=== PATIENT | female | born 1995 | race Caucasian/White ===

== ENCOUNTER 2016-10-18 18:05 | Emergency (ER) | payer OTHER ==
[~2016-10-18] VITALS: Ht 165.1 cm; Wt 117.4 kg
[2016-10-18 18:09] VITALS: TEMP 36.9; Ht 165.1 cm; Wt 117.4 kg
[2016-10-18] MEDS ORDERED: MULT-580 PO (18:19)
[2016-10-18] MEDS ORDERED: IBUP-1050 PO (18:19)
[2016-10-18] MEDS ORDERED: TRAM-10 PO (19:21)
[2016-10-18] MEDS ORDERED: CYCL10TA6 PO (19:21)
[2016-10-18 19:28] VITALS: BP 145/83; PULSE 93; O2SAT 97
--- NOTE | 2016-10-19 00:55 | EMERGENCY ROOM VISIT NOTE ---
ED Visit Note First contact with patient: 18:20 Chief Complaint: Lower back pain. History of Present Illness: Ms. Nickerson is a 20-year-old white female who ambulates into the ED accompanied by female friend complaining of lumbar back pain. Patient reports she has no significant history of lumbar back disease. Patient reports she has been feeling well over the last few days. Last night she reports she bent over to pick something up and developed an acute onset of lumbar back pain. Since that time her pain has been constant. She describes her pain as a sharp sensation through the L4-L5 area with right sided prominence. She reports intermittently her pain radiates early to behind the scapula and also into the left buttocks. She currently rates her discomfort 8/ 10. Her pain worsens with all movements and palpation of the back. She has not identified any alleviating factors related to the pain. Patient reports she has not taken any medications for pain prior to arrival at the hospital. She denies any associated symptoms including fevers, chills, sweats, skin eruptions, skin color changes, chest pain, shortness of breath, abdominal pain, nausea, vomiting, diarrhea, constipation, urinary symptoms, genital paresthesias , rectal paresthesias, bowel and bladder dysfunction, lower extremity weakness/ numbness/tingling. Review of Systems: As noted above in history of present illness. All body systems were reviewed and found to be negative as noted above. Past Medical History: Patient denies. Current Medications: Ibuprofen, multivitamins. Allergies to Medications: Patient denies. Social History: Patient is is currently employed; she feels safe in her home environment; she admits to tobacco use and denies alcohol use. Physical Examination: Vital Signs: Date Time Temp Pulse Resp B/P Pulse Ox O2 Delivery O2 Flow Rate FiO2 10/18/16 19:28 93 20 145/83 97 10/18/16 18:09 36.9 107 18 123/76 98 Room Air GENERAL: 20-year-old female in mild to moderate distress due to pain, nontoxic- appearing, afebrile and hemodynamically stable. NEUROLOGICAL: Awake, alert and oriented to person, place and time. Answering questions appropriately and following commands. Normal gait. Good hand eye coordination. No focal motor or sensory deficits. SKIN: Warm, dry and pink. No soft tissue eruptions or trauma noted. HEENT: Atraumatic and normocephalic. BACK: No tenderness over the bony cervical and thoracic spine. No CVA tenderness. Over the L1-L2 and L3-L5 just right lateral to the spine. Patient has pain and muscle spasm in the lumbar paraspinous which are. I do not appreciate any bony tenderness or deformities. There is no step-offs. Positive straight leg raise test. THORAX: Lungs sounds are clear to auscultation and equal bilaterally with symmetrical chest wall. No wheezing, rales or rhonchi. HEART: Regular rate and rhythm. No gallops, rubs or murmurs are appreciated. ABDOMEN: Obese, soft and nontender. Positive bowel sounds in all quadrants. No guarding, rigidity or organomegaly. LOWER EXTREMITIES: No gross bony deformity. No shortening or malrotation. No tenderness over the hips, knees, lower legs, ankles or feet. 4/5 muscle strength in abduction and abduction, flexion and extension of the hips, flexion and extension of the, plantar flexion and dorsiflexion of the ankles and flexion and extension of all toes. 2+ patellar and Achilles deep tendon reflexes intact and equal bilaterally. Throughout the extremity is skin was warm and pink and capillary refill is brisk. She is able to distinguish light sensations through all dermatomes of the lower legs. ED Course: Patient is assessed as noted above. Patient was educated about tonight's findings and instructed on her treatment plan; she verbalizes understanding and agreement with this plan. Clinical Impression: Right sided sciatica. Disposition: Patient discharged home in stable condition accompanied by multiple family members; prior to departure she was reassessed and subjectively reported she was feeling the same. Plan: Patient was encouraged to alter 50 mg of Ultram and 600 mg of ibuprofen every 3 hours as needed for pain. Patient was prescribed Flexeril 10 mg every 8 hours as needed for muscle spasm. Patient was encouraged use ice over areas of pain. Patient was educated on proper lifting and moving techniques. Patient was encouraged to follow-up with family physician for recheck in 3-4 days. Patient was encouraged return the ED front controlled pain, fevers, abdominal pain, bowel and bladder dysfunction, genital paresthesias, lower extremity weakness/numbness/tingling or any new/concerning symptoms.
== END 2016-10-18 19:28 | disposition home or self-care (01) ==
LOC: C.EDB 18:07 → C.EDD 19:28
DX: M54.41 Lumbago with sciatica, right side (principal); F17.200 Nicotine dependence, unspecified, uncomplicated

== ENCOUNTER 2016-11-30 14:42 | Emergency (ER) | payer OTHER ==
[~2016-11-30] VITALS: Ht 165.1 cm; Wt 115.5 kg
[~2016-11-30 14:42] MED LIST: IBUP-1050 PO; MULT-580 PO; TRAM-10 PO
[2016-11-30 14:49] VITALS: TEMP 37; Ht 165.1 cm; Wt 115.5 kg
[2016-11-30] MEDS ORDERED: ACETAMINOPHEN 500 MG TAB PO STA (15:23)
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
[2016-11-30 17:23] VITALS: BP 154/75; PULSE 95; O2SAT 96
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
== END 2016-11-30 17:25 | disposition home or self-care (01) ==
LOC: C.EDB 14:46 → C.EDD 17:25
DX: S00.83XA Contusion of other part of head, initial encounter (principal); M25.531 Pain in right wrist; Y04.0XXA Assault by unarmed brawl or fight, initial encounter

== ENCOUNTER 2017-03-03 00:45 | Emergency (ER) | payer OTHER ==
[~2017-03-03] VITALS: Ht 165.1 cm; Wt 113.9 kg
[2017-03-03 00:48] VITALS: Ht 165.1 cm; Wt 113.9 kg
[2017-03-03] MEDS ORDERED: PRED20TA2 PO (01:11)
[2017-03-03 01:20] VITALS: BP 130/73; PULSE 75; TEMP 36.7; O2SAT 100
--- NOTE | 2017-03-03 06:56 | EMERGENCY ROOM VISIT NOTE ---
ED Visit Note First contact with patient: 00:53 CHIEF COMPLAINT: Rash HISTORY OF PRESENT ILLNESS: This 21-year-old female patient presents to the emergency department complaining of a rash on her back and abdomen which started about 2 weeks ago. The patient denies fever, chills, nausea, or loss of appetite. They deny any URI symptoms. The patient has tried nothing over-the -counter. The patient states the rash is pruritic and rates the discomfort as 5 /10. No change in food, soap, detergents, or other environmental factors. No new medications. No weakness or numbness. REVIEW OF SYSTEMS: A 6 system review of systems was completed with positives and pertinent negatives listed in the HPI. ALLERGIES: No known allergies. 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 GENERAL : White female, in no acute distress, well-developed, well-nourished. SKIN: There is an urticarial-like rash best appreciated over the back and abdomen. Capillary refill less than 2 seconds. EMERGENCY DEPARTMENT COURSE: Physical exam and history were performed. Nursing notes and EMR were reviewed. The patient has a rash on her body for about the past 2 weeks. She does not have changes in soaps or detergents. 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 This is certainly a possibility as the rash appears to be worse on her upper chest and back. I will provide the patient Benadryl here in the department as well as a dose of prednisone. She will be discharged home with short course of prednisone. I recommend that she wash her own scrubs and follow-up with her primary care physician if symptoms persist. She certainly does not appear in anaphylaxis and does not need epinephrine. The patient was otherwise invited back to the ER with any new , worsening, or concerning symptoms. Current/Historical Medications Scheduled Prednisone (Prednisone Tab), 2 TAB PO DAILY Allergies Coded Allergies: No Known Allergies (Verified , 03/03/17) Vital Signs Date Time Temp Pulse Resp B/P (MAP) Pulse Ox O2 Delivery O2 Flow Rate FiO2 03/03/17 01:20 36.7 75 16 130/73 100 03/03/17 00:48 36.7 75 16 130/73 100 Room Air Medications Administered Medications (Trade) Dose Ordered Sig/Asaf Route Start Time Stop Time Status Last Admin Dose Admin Diphenhydramine HCl (Benadryl Cap) 25 mg NOW ONCE PO 03/03/17 01:15 03/03/17 01:16 DC 03/03/17 01:17 25 MG Prednisone (PredniSONE TAB) 40 mg NOW STAT PO 03/03/17 01:10 03/03/17 01:11 DC 03/03/17 01:17 40 MG Departure Information Impression Primary Impression: Rash and other nonspecific skin eruption Dispostion Home / Self-Care Condition FAIR Prescriptions Prednisone (Prednisone Tab) 20 Mg Tab 2 TAB PO DAILY for 4 Days, #8 TAB Prov: Ameya Greenberg PA-C 03/03/17 Forms HOME CARE DOCUMENTATION FORM, IMPORTANT VISIT INFORMATION Patient Instructions [facility] Additional Instructions You were seen and evaluated today on an emergency basis only. This is not a substitute for, or an effort to provide, complete comprehensive medical care. It is not possible to recognize and treat all injuries or illnesses in a single emergency department visit. For this reason it is recommended that you followup with your primary care physician this week for ongoing care and evaluation. Use [id number] Benadryl 25-50 mg every 6 hours as needed. This medication will likely make you tired. Take prednisone as prescribed the next 4 days. You are welcome to return to the emergency department anytime with new, worsening, or concerning symptoms.
== END 2017-03-03 01:20 | disposition home or self-care (01) ==
LOC: C.EDB 00:46
DX: R21 Rash and other nonspecific skin eruption (principal)

== ENCOUNTER 2023-02-04 07:52 | Inpatient (IN) ==
[2023-02-04] MEDS ORDERED: OXYTOCIN 30 UNITS/500 ML BAG IV PRN (08:52)
[2023-02-04] MEDS ORDERED: LIDOCAINE 1% LOCAL 20 ML VIAL INFIL PRN (08:52)
[2023-02-04 09:23] LABS: Hematocrit (blood only) 34.6 % (37.0-47.0); Hemoglobin 11.9 g/dl (12.0-16.0); Mean Corpuscular Hemoglobin 27.2 pg (25.0-34.0); Mean Corpuscular Hgb Conc 34.4 g/dL (32.0-36.0); Mean Platelet Volume 10.7 fL (9.4-12.4); Platelet Count 208 K/uL (130-400); RDW Coefficient of Variation 14.8 % (11.5-14.5); RDW Standard Deviation 42.5 fL (36.4-46.3); Red Blood Count 4.38 M/uL (4.20-5.40); White Blood Count 7.12 K/ul (4.8-10.8)
[2023-02-04] MEDS ORDERED: DINOPROSTONE 10 MG INSERT PV ONE (10:45)
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
--- NOTE | 2023-02-04 11:32 | Labor Progress Brief Note ---
Date of Service February 04, 2023 Assessment & Plan Admission and Anticipated Discharge Date Admission Date: February 04, 2023 Physical Exam Genitourinary: Manual OB Exam: + cervical dilation fingertip, + cervical effacement 50% and + station high OB Exam Monitor Tracing: + external FHT monitor used, + external uterine monitor used, + category I and + normal FHT variability Cervidil 10 mg placed Results & Data Vital Signs (Past 12 Hours) Vital Signs Temp Pulse Resp BP 02/04/23 08:15 37.1 C 20 02/04/23 08:08 93 H 137/60
[2023-02-04] MEDS ORDERED: miSOPROStoL 50 MCG TAB PO PRN (22:42)
[2023-02-04] MEDS ORDERED: BUTORPHANOL TARTRATE 1 MG/ML VIAL IV PRN (22:42)
--- NOTE | 2023-02-04 22:52 | Labor Progress Brief Note ---
Date of Service February 04, 2023 Assessment & Plan Admission and Anticipated Discharge Date Admission Date: February 04, 2023 Physical Exam Genitourinary: Manual OB Exam: + cervical dilation 1 cm and 2 cm, + cervical effacement 80% and + station high OB Exam Monitor Tracing: + external FHT monitor used, + external uterine monitor used, + category I and + normal FHT variability Results & Data Vital Signs (Past 12 Hours) Vital Signs Temp Pulse Resp BP O2 Del Method 02/04/23 19:35 Room Air 02/04/23 22:20 36.6 C 02/04/23 19:35 20 02/04/23 19:35 36.8 C 20 02/04/23 19:35 84 02/04/23 19:35 118/58 L 02/04/23 17:56 83 02/04/23 17:56 118/77 02/04/23 11:31 81 02/04/23 11:31 36.8 C 20 130/61
[2023-02-05] MEDS: LACTATED RINGER'S 1,000 ML IV PRN ×2 (01:44→05:45)
[2023-02-05] MEDS ORDERED: LIDOCAINE 2%/EPINEPHRINE 1:200,000 20 ML PF ONE (01:48)
[2023-02-05] MEDS ORDERED: ePHEDrine sulfate 50 MG/ML AMP ONE (01:48)
[2023-02-05] MEDS ORDERED: fentaNYL citrate PF 100 MCG/2 ML VIAL ONE (01:48)
[2023-02-05] MEDS ORDERED: fentaNYL 2MCG/ML ROPIVACAINE 1.25MG/ML 100 ML BAG EPI ONE (01:48)
[2023-02-05] MEDS ORDERED: SODIUM CHLORIDE 0.9% PF INJ 10 ML VIAL ONE (01:48)
[2023-02-05] MEDS ORDERED: BUPIVACAINE 0.25% PF 30 ML VIAL ONE (01:48)
[2023-02-05] MEDS ORDERED: diphenhydrAMINE 50 MG/ML VIAL IV PRN (02:01)
[2023-02-05] MEDS ORDERED: SODIUM CHLORIDE 0.9% PF INJ 10 ML VIAL EPI STA (02:01)
[2023-02-05] MEDS ORDERED: ePHEDrine sulfate 50 MG/ML AMP IV PRN (02:01)
[2023-02-05] MEDS ORDERED: LIDOCAINE 2% MPF LOCAL 5 ML VIAL EPI PRN (02:01)
[2023-02-05] MEDS ORDERED: NALBUPHINE HCL INJ 10 MG/ML AMP IV PRN (02:01)
[2023-02-05] MEDS ORDERED: fentaNYL 2MCG/ML ROPIVACAINE 1.25MG/ML 100 ML BAG EPI PRN (02:01)
[2023-02-05] MEDS ORDERED: ROPIVACAINE 0.5% PF 5 MG/ML 20 ML VIAL EPI PRN (02:01)
[2023-02-05] MEDS ORDERED: NALOXONE HCL 0.4 MG/1 ML VIAL/CARP IV PRN (02:01)
[2023-02-05] MEDS ORDERED: fentaNYL citrate PF 100 MCG/2 ML VIAL EPI PRN (02:01)
[2023-02-05] MEDS ORDERED: NALOXONE HCL 1 MG in SODIUM CHLORIDE 0.9% 1000ML 1,000 ML IV PRN (02:01)
[2023-02-05] MEDS ORDERED: BUPIVACAINE 0.25% PF 30 ML VIAL EPI PRN (02:01)
[2023-02-05] MEDS ORDERED: SODIUM CHLORIDE 0.9% PF INJ 10 ML VIAL EPI PRN (02:01)
[2023-02-05] MEDS ORDERED: BUPIVACAINE 0.25% PF 30 ML VIAL EPI STA (02:01)
[2023-02-05] MEDS ORDERED: fentaNYL citrate PF 100 MCG/2 ML VIAL EPI STA (02:01)
[2023-02-05] MEDS ORDERED: LIDOCAINE 2%/EPINEPHRINE 1:200,000 20 ML PF EPI STA (02:01)
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
[2023-02-05] MEDS ORDERED: OXYTOCIN 30 UNITS/500 ML BAG IV PRN ×3 (07:24→11:09)
--- NOTE | 2023-02-05 07:31 | Labor Progress Brief Note ---
Date of Service February 05, 2023 Assessment & Plan Admission and Anticipated Discharge Date Admission Date: February 04, 2023 Physical Exam Genitourinary: Manual OB Exam: + cervical dilation 3 cm, + cervical effacement 70% and + station -2 OB Exam Monitor Tracing: + external FHT monitor used, + external uterine monitor used, + category I and + normal FHT variability will start Oxytocin Results & Data Vital Signs (Past 12 Hours) Vital Signs Temp Pulse Resp BP Pulse Ox O2 Del Method 02/04/23 19:35 Room Air 02/05/23 07:29 84 97 02/05/23 07:24 85 97 02/05/23 07:19 82 97 02/05/23 07:17 80 121/58 L 02/05/23 07:14 101 H 97 02/05/23 07:09 88 97 02/05/23 07:04 86 96 02/05/23 07:00 16 02/05/23 07:00 16 02/05/23 07:02 83 118/57 L 02/05/23 06:59 85 96 02/05/23 06:54 83 96 02/05/23 06:49 95 H 96 02/05/23 06:47 86 121/62 02/05/23 06:30 16 02/05/23 06:30 16 02/05/23 06:44 81 98 02/05/23 06:39 86 96 02/05/23 06:34 85 97 02/05/23 06:31 84 121/60 02/05/23 06:29 85 96 02/05/23 06:24 84 96 02/05/23 06:19 85 97 02/05/23 06:16 79 116/60 02/05/23 06:14 85 97 02/05/23 06:09 86 96 02/05/23 06:04 83 97 02/05/23 06:03 83 119/65 02/05/23 06:00 16 02/05/23 06:00 16 02/05/23 05:59 87 98 02/05/23 05:54 86 97 02/05/23 05:49 88 99 02/05/23 05:46 16 02/05/23 05:46 36.5 C 16 02/05/23 05:47 86 126/60 02/05/23 05:44 85 98 02/05/23 05:39 90 99 02/05/23 05:34 87 97 02/05/23 05:32 84 133/67 02/05/23 05:29 79 92 02/05/23 05:00 16 02/05/23 05:00 16 02/05/23 05:24 95 H 96 02/05/23 05:19 86 96 02/05/23 05:16 88 128/66 02/05/23 05:14 82 96 02/05/23 05:09 87 96 02/05/23 05:04 98 H 96 02/05/23 05:01 86 126/67 02/05/23 04:59 84 97 02/05/23 04:54 84 96 02/05/23 04:49 84 96 02/05/23 04:46 76 129/68 02/05/23 04:44 93 H 96 02/05/23 04:39 86 95 02/05/23 04:34 93 H 96 02/05/23 04:32 82 130/62 02/05/23 04:29 83 95 02/05/23 04:24 80 96 02/05/23 04:17 16 02/05/23 04:17 36.9 C 16 02/05/23 04:19 94 H 97 02/05/23 04:16 76 125/60 02/05/23 04:14 93 H 96 02/05/23 04:09 83 95 02/05/23 04:04 84 96 02/05/23 04:01 71 127/62 02/05/23 03:59 83 96 02/05/23 03:54 73 96 02/05/23 03:49 84 95 02/05/23 03:46 78 127/62 02/05/23 03:44 77 95 02/05/23 03:39 84 94 02/05/23 03:34 83 96 02/05/23 03:31 77 122/62 02/05/23 03:29 86 95 02/05/23 03:24 88 96 02/05/23 03:19 79 96 02/05/23 03:18 80 120/57 L 02/05/23 03:14 85 95 02/05/23 03:09 80 95 02/05/23 03:04 78 96 02/05/23 03:00 16 02/05/23 03:00 16 02/05/23 03:01 82 117/58 L 02/05/23 02:59 78 97 02/05/23 02:58 79 122/64 02/05/23 02:54 83 97 02/05/23 02:53 85 122/60 02/05/23 02:49 86 97 02/05/23 02:48 87 124/65 02/05/23 02:44 91 H 98 02/05/23 02:40 83 110/53 L 02/05/23 02:39 96 H 96 02/05/23 02:38 84 115/58 L 02/05/23 02:37 86 120/58 L 02/05/23 02:34 86 97 02/05/23 02:33 86 106/86 02/05/23 02:29 90 96 02/05/23 02:27 91 H 93 02/05/23 02:24 92 H 98 02/05/23 02:19 81 98 02/05/23 02:00 20 02/05/23 02:00 36.6 C 20 02/05/23 00:16 36.8 C 02/05/23 00:14 74 90 02/05/23 00:11 81 84 L 02/05/23 00:08 90 92 02/05/23 00:06 76 83 L 02/05/23 00:01 84 100 02/05/23 00:00 83 93 02/04/23 23:56 100 02/04/23 23:56 93 H 02/04/23 23:54 94 02/04/23 23:54 73 02/04/23 23:51 90 02/04/23 23:51 81 02/04/23 23:49 92 02/04/23 23:49 86 02/04/23 23:46 92 02/04/23 23:46 73 02/04/23 23:41 92 02/04/23 23:41 75 02/04/23 23:36 100 02/04/23 23:36 84 02/04/23 23:36 94 02/04/23 23:36 82 02/04/23 23:30 16 02/04/23 23:30 16 02/04/23 23:31 98 02/04/23 23:31 87 02/04/23 23:29 94 02/04/23 23:29 84 02/04/23 23:26 95 02/04/23 23:26 83 02/04/23 23:22 92 02/04/23 23:22 86 02/04/23 23:21 98 02/04/23 23:21 91 H 02/04/23 23:16 98 02/04/23 23:16 87 02/04/23 23:16 93 02/04/23 23:16 85 02/04/23 23:11 93 02/04/23 23:11 94 H 02/04/23 23:11 92 02/04/23 23:11 90 02/04/23 23:06 100 02/04/23 23:06 87 02/04/23 23:05 94 02/04/23 23:05 92 H 02/04/23 23:01 97 02/04/23 23:01 96 H 02/04/23 22:56 99 02/04/23 22:56 82 02/04/23 22:52 79 02/04/23 22:52 130/65 02/04/23 22:51 99 02/04/23 22:51 80 02/04/23 22:20 36.6 C 02/04/23 19:35 20 02/04/23 19:35 36.8 C 20 02/04/23 19:35 84 02/04/23 19:35 118/58 L
[2023-02-05] MEDS ORDERED: NURSING L&D Epidural Breakthrough Pain Update ONE (10:00)
[2023-02-05] MEDS ORDERED: IBUPROFEN 600 MG TAB PO PRN (11:09)
[2023-02-05] MEDS ORDERED: bisacodyL 10 MG SUPP PR PRN (11:09)
[2023-02-05] MEDS ORDERED: HYDROCORTISONE ACETATE 25 MG SUPP PR PRN (11:09)
[2023-02-05] MEDS ORDERED: ACETAMINOPHEN 325 MG TAB PO PRN (11:09)
[2023-02-05] MEDS ORDERED: BENZOCAINE 20% AER SPR 82.5 GM CAN EXT PRN (11:09)
[2023-02-05] MEDS ORDERED: DIPHTHERIA/TETANUS/PERTUSSIS Vaccine (Tdap, Age 7+yrs) 0.5mL SYR/VL IM ONE (11:09)
--- NOTE | 2023-02-05 11:09 | Delivery Summary ---
Vaginal Delivery Summary Date of Service February 05, 2023 Vaginal Delivery Summary Delivery Note live female ASHIA over intact perineum with delayed cord clamping and Apgars 8/9 weight pending. Cord blood obtained followed by spontaneous delivery of intact placenta. No tears. EBL 150 ml. Final sponge and instrument count are correct. Mom and baby stable.
--- NOTE | 2023-02-05 11:17 | Anesthesiology Progress Note ---
Date of Service February 05, 2023 Anesthesia Post Procedure Vital Signs Vital Signs: Temp Pulse Resp BP Pulse Ox O2 Del Method 02/05/23 07:33 36.7 C 20 02/04/23 19:35 Room Air 02/05/23 11:13 102 H 129/61 02/05/23 10:01 20 02/05/23 10:01 20 02/05/23 10:57 106 H 136/64 02/05/23 10:49 93 H 97 02/05/23 10:47 96 H 143/65 H 02/05/23 10:44 105 H 97 02/05/23 10:39 109 H 87 L 02/05/23 10:37 104 H 83 L 02/05/23 10:34 99 H 99 02/05/23 10:32 100 H 146/70 H 02/05/23 10:29 98 H 81 L 02/05/23 10:24 113 H 100 02/05/23 10:23 108 H 77 L 02/05/23 10:19 108 H 100 02/05/23 10:17 94 H 117/59 L 02/05/23 10:14 95 H 100 02/05/23 10:09 107 H 100 02/05/23 10:04 109 H 97 02/05/23 10:02 100 H 146/65 H 02/05/23 09:59 99 H 100 02/05/23 09:54 103 H 96 02/05/23 09:49 96 H 100 02/05/23 09:31 18 02/05/23 09:31 36.7 C 18 02/05/23 09:01 20 02/05/23 09:01 20 02/05/23 09:47 97 H 134/66 02/05/23 09:44 102 H 98 02/05/23 09:39 106 H 98 02/05/23 09:38 101 H 82 L 02/05/23 09:34 99 H 98 02/05/23 09:32 85 141/73 H 02/05/23 09:29 99 H 98 02/05/23 09:24 96 H 98 02/05/23 09:19 84 98 02/05/23 09:17 88 126/71 02/05/23 09:14 87 99 02/05/23 09:09 88 99 02/05/23 09:04 89 99 02/05/23 09:02 86 135/73 02/05/23 08:59 83 99 02/05/23 08:54 84 98 02/05/23 08:49 81 100 02/05/23 08:47 86 128/63 02/05/23 08:44 84 97 02/05/23 08:39 86 97 02/05/23 08:34 83 97 02/05/23 08:31 18 02/05/23 08:31 18 02/05/23 08:32 88 118/62 02/05/23 08:29 86 97 02/05/23 08:24 81 97 02/05/23 08:19 85 99 02/05/23 08:17 89 123/67 02/05/23 08:14 93 H 98 02/05/23 08:01 20 02/05/23 08:01 20 02/05/23 08:09 91 H 99 02/05/23 08:04 87 99 02/05/23 08:02 97 H 121/61 02/05/23 07:59 101 H 97 02/05/23 07:54 85 96 02/05/23 07:49 83 97 02/05/23 07:47 88 119/62 02/05/23 07:44 84 98 02/05/23 07:39 83 96 02/05/23 07:03 20 02/05/23 07:03 20 02/05/23 07:31 20 02/05/23 07:31 20 02/05/23 07:34 87 97 02/05/23 07:32 85 122/61 02/05/23 07:29 84 97 02/05/23 07:24 85 97 02/05/23 07:19 82 97 02/05/23 07:17 80 121/58 L 02/05/23 07:14 101 H 97 02/05/23 07:09 88 97 02/05/23 07:04 86 96 02/05/23 07:00 16 02/05/23 07:00 16 02/05/23 07:02 83 118/57 L 02/05/23 06:59 85 96 02/05/23 06:54 83 96 02/05/23 06:49 95 H 96 02/05/23 06:47 86 121/62 02/05/23 06:30 16 02/05/23 06:30 16 07/12/23 06:44 81 98 02/05/23 06:39 86 96 02/05/23 06:34 85 97 02/05/23 06:31 84 121/60 02/05/23 06:29 85 96 02/05/23 06:24 84 96 02/05/23 06:19 85 97 02/05/23 06:16 79 116/60 02/05/23 06:14 85 97 02/05/23 06:09 86 96 02/05/23 06:04 83 97 02/05/23 06:03 83 119/65 02/05/23 06:00 16 02/05/23 06:00 16 02/05/23 05:59 87 98 02/05/23 05:54 86 97 02/05/23 05:49 88 99 02/05/23 05:46 16 02/05/23 05:46 36.5 C 16 02/05/23 05:47 86 126/60 02/05/23 05:44 85 98 02/05/23 05:39 90 99 02/05/23 05:34 87 97 02/05/23 05:32 84 133/67 02/05/23 05:29 79 92 02/05/23 05:00 16 02/05/23 05:00 16 02/05/23 05:24 95 H 96 02/05/23 05:19 86 96 02/05/23 05:16 88 128/66 02/05/23 05:14 82 96 02/05/23 05:09 87 96 02/05/23 05:04 98 H 96 02/05/23 05:01 86 126/67 02/05/23 04:59 84 97 02/05/23 04:54 84 96 02/05/23 04:49 84 96 02/05/23 04:46 76 129/68 02/05/23 04:44 93 H 96 02/05/23 04:39 86 95 02/05/23 04:34 93 H 96 02/05/23 04:32 82 130/62 02/05/23 04:29 83 95 02/05/23 04:24 80 96 02/05/23 04:17 16 02/05/23 04:17 36.9 C 16 02/05/23 04:19 94 H 97 02/05/23 04:16 76 125/60 02/05/23 04:14 93 H 96 02/05/23 04:09 83 95 02/05/23 04:04 84 96 02/05/23 04:01 71 127/62 02/05/23 03:59 83 96 02/05/23 03:54 73 96 02/05/23 03:49 84 95 02/05/23 03:46 78 127/62 02/05/23 03:44 77 95 02/05/23 03:39 84 94 02/05/23 03:34 83 96 02/05/23 03:31 77 122/62 02/05/23 03:29 86 95 02/05/23 03:24 88 96 02/05/23 03:19 79 96 02/05/23 03:18 80 120/57 L 02/05/23 03:14 85 95 02/05/23 03:09 80 95 02/05/23 03:04 78 96 02/05/23 03:00 16 02/05/23 03:00 16 02/05/23 03:01 82 117/58 L 02/05/23 02:59 78 97 02/05/23 02:58 79 122/64 02/05/23 02:54 83 97 02/05/23 02:53 85 122/60 02/05/23 02:49 86 97 02/05/23 02:48 87 124/65 02/05/23 02:44 91 H 98 02/05/23 02:40 83 110/53 L 02/05/23 02:39 96 H 96 02/05/23 02:38 84 115/58 L 02/05/23 02:37 86 120/58 L 02/05/23 02:34 86 97 02/05/23 02:33 86 106/86 02/05/23 02:29 90 96 02/05/23 02:27 91 H 93 02/05/23 02:24 92 H 98 02/05/23 02:19 81 98 02/05/23 02:00 20 02/05/23 02:00 36.6 C 20 02/05/23 00:16 36.8 C 02/05/23 00:14 74 90 02/05/23 00:11 81 84 L 02/05/23 00:08 90 92 02/05/23 00:06 76 83 L 02/05/23 00:01 84 100 02/05/23 00:00 83 93 02/04/23 23:56 100 02/04/23 23:56 93 H 02/04/23 23:54 94 02/04/23 23:54 73 02/04/23 23:51 90 02/04/23 23:51 81 02/04/23 23:49 92 02/04/23 23:49 86 02/04/23 23:46 92 02/04/23 23:46 73 02/04/23 23:41 92 02/04/23 23:41 75 02/04/23 23:36 100 02/04/23 23:36 84 02/04/23 23:36 94 02/04/23 23:36 82 02/04/23 23:30 16 02/04/23 23:30 16 02/04/23 23:31 98 02/04/23 23:31 87 02/04/23 23:29 94 02/04/23 23:29 84 02/04/23 23:26 95 02/04/23 23:26 83 02/04/23 23:22 92 02/04/23 23:22 86 02/04/23 23:21 98 02/04/23 23:21 91 H 02/04/23 23:16 98 02/04/23 23:16 87 02/04/23 23:16 93 02/04/23 23:16 85 02/04/23 23:11 93 02/04/23 23:11 94 H 02/04/23 23:11 92 02/04/23 23:11 90 02/04/23 23:06 100 02/04/23 23:06 87 02/04/23 23:05 94 02/04/23 23:05 92 H 02/04/23 23:01 97 02/04/23 23:01 96 H 02/04/23 22:56 99 02/04/23 22:56 82 02/04/23 22:52 79 02/04/23 22:52 130/65 02/04/23 22:51 99 02/04/23 22:51 80 02/04/23 22:20 36.6 C 02/04/23 19:35 20 02/04/23 19:35 36.8 C 20 02/04/23 19:35 84 02/04/23 19:35 118/58 L 02/04/23 17:56 83 02/04/23 17:56 118/77 02/04/23 11:31 81 02/04/23 11:31 36.8 C 20 130/61 Pain Intensity Bilateral Abdomen: Pain Intensity: 9 Transfer of Care Handoff Completed per policy Notes Mental Status: alert / awake / arousable and participated in evaluation Patient Amnestic to Procedure: Yes Nausea / Vomiting: adequately controlled Pain: adequately controlled Airway Patency, RR, SpO2: stable & adequate BP & HR: stable & adequate Hydration State: stable & adequate Anesthetic Complications: no major complications apparent and Pt Satisfied with anesthetic care
[2023-02-05] MEDS ORDERED: Nursing to Pharmacy Communication SCH (16:30)
[2023-02-05] MEDS: DOCUSATE SODIUM 100 MG CAP PO SCH (20:14)
[2023-02-05] MEDS ORDERED: NON-FORMULARY MEDICATION (Insulin Glargine 100 unit/mL Cartridge) SQ SCH (21:00)
[2023-02-06 06:31] LABS: Hemoglobin 10.2 g/dl (12.0-16.0); Mean Corpuscular Hemoglobin 27.3 pg (25.0-34.0); Mean Corpuscular Volume 80.4 fL (80.0-100.0); Mean Platelet Volume 10.6 fL (9.4-12.4); Platelet Count 179 K/uL (130-400); RDW Coefficient of Variation 15.1 % (11.5-14.5); RDW Standard Deviation 43.9 fL (36.4-46.3); Red Blood Count 3.73 M/uL (4.20-5.40); White Blood Count 9.26 K/ul (4.8-10.8)
--- NOTE | 2023-02-06 07:19 | Obstetrical Progress Note ---
Date of Service February 06, 2023 Subjective Ambulation: ambulating normally Voiding: no voiding problems Passing Gas:: Yes Diet Tolerance:: regular diet Lochia:: Small Feeding Type:: breast feeding Current Pain Level(1-10): 0 doing well Physical Exam Constitutional WD/WN, vitals as above Gastrointestinal (Abdomen) Inspection/Auscultation: abdomen normal to inspection fundus firm abdomen soft and non-tender Musculoskeletal Extremities: extremities normal to inspection Skin no rashes, warm and dry Neurologic patellar DTR's 2+ bilat, sensation intact Psychiatric A+Ox3, euthymic affect Results & Data Vital Signs (Past 12 Hours) Vital Signs Temp Pulse Resp BP Pulse Ox O2 Del Method 02/06/23 04:10 36.6 C 91 H 18 131/83 95 Room Air 02/06/23 01:00 36.4 C L 89 20 121/79 95 Room Air 02/05/23 20:35 36.6 C 84 18 113/73 96 Room Air Laboratory Results Laboratory Results - last 72 hr 02/04/23 02/04/23 02/04/23 09:02 09:02 10:12 WBC 7.12 RBC 4.38 Hgb 11.9 L Hct 34.6 L MCV 79.0 L MCH 27.2 MCHC 34.4 RDW Std Deviation 42.5 RDW Coeff of Senia 14.8 H Plt Count 208 MPV 10.7 POC Glucose 96 SARS-CoV-2, RNA, NAAT Blood Type B Positive Antibody Screen NEGATIVE 02/04/23 02/04/23 02/04/23 14:23 18:21 22:20 WBC RBC Hgb Hct MCV MCH MCHC RDW Std Deviation RDW Coeff of Senia Plt Count MPV POC Glucose 91 98 77 SARS-CoV-2, RNA, NAAT Blood Type Antibody Screen 02/04/23 02/05/23 02/05/23 Unknown 02:01 03:00 WBC RBC Hgb Hct MCV MCH MCHC RDW Std Deviation RDW Coeff of Senia Plt Count MPV POC Glucose 88 92 SARS-CoV-2, RNA, NAAT NEGATIVE Blood Type Antibody Screen 02/05/23 02/05/23 02/05/23 04:19 05:32 07:08 WBC RBC Hgb Hct MCV MCH MCHC RDW Std Deviation RDW Coeff of Senia Plt Count MPV POC Glucose 88 98 85 SARS-CoV-2, RNA, NAAT Blood Type Antibody Screen 02/05/23 02/05/23 02/06/23 08:13 09:27 06:06 WBC 9.26 RBC 3.73 L Hgb 10.2 L Hct 30.0 L MCV 80.4 MCH 27.3 MCHC 34.0 RDW Std Deviation 43.9 RDW Coeff of Senia 15.1 H Plt Count 179 MPV 10.6 POC Glucose 82 71 SARS-CoV-2, RNA, NAAT Blood Type Antibody Screen
[2023-02-06] MEDS: PRENATAL VITAMIN 1 TAB PO SCH (07:40)
[2023-02-06] MEDS: DOCUSATE SODIUM 100 MG CAP PO SCH ×2 (07:40→20:12)
[2023-02-06] MEDS ORDERED: FERROUS SULFATE 325 MG TAB PO SCH (09:00)
[2023-02-06] MEDS ORDERED: NON-FORMULARY MEDICATION (Prenat.Vits,Cal,Min-Iron-Folic tablet) PO SCH (09:00)
[2023-02-06] MEDS ORDERED: bisacodyL 5 MG TABEC PO SCH (20:00)
[2023-02-07 06:47] LABS: Hematocrit (blood only) 30.9 % (37.0-47.0); Hemoglobin 10.6 g/dl (12.0-16.0)
[2023-02-07] MEDS: DOCUSATE SODIUM 100 MG CAP PO SCH (09:00)
[2023-02-07] MEDS: PRENATAL VITAMIN 1 TAB PO SCH (09:00)
--- NOTE | 2023-02-07 12:37 | Obstetrical Progress Note ---
Date of Service February 07, 2023 Assessment & Plan (1) Normal course: PPD #2 pt doing well wishes to be discharged home Subjective Ambulation: ambulating normally Voiding: no voiding problems Passing Gas:: Yes Diet Tolerance:: regular diet Lochia:: Small Feeding Type:: breast feeding Review of Systems All systems reviewed & are unremarkable except as noted in HPI & below Physical Exam Constitutional WD/WN, vitals as above well developed and well nourished Eyes PERRL, conjunctivae normal, anicteric sclerae Neck trachea midline, no thyromegaly Respiratory normal respiratory effort, lungs clear to auscultation Auscultation: no crackles, no rales and no wheezes Cardiovascular RRR, no murmur, no edema Gastrointestinal (Abdomen) normal bowel sounds, soft, nontender, no hepatosplenomegaly Uterus is below umbilicus Musculoskeletal no cyanosis or clubbing, extremities motor strength 5/5 Skin no rashes, warm and dry Neurologic patellar DTR's 2+ bilat, sensation intact Psychiatric A+Ox3, euthymic affect Genitourinary normal external appearance Results & Data Vital Signs (Past 12 Hours) Vital Signs Temp Pulse Resp BP Pulse Ox O2 Del Method 02/07/23 07:45 36.6 C 96 H 18 109/75 97 Room Air 02/07/23 02:30 36.6 C 94 H 20 122/80 97 Room Air
== END 2023-02-07 15:13 | disposition home or self-care (01) | DRG 807 ==
LOC: EDBD → 4S1 07:52 → MERGE 08:09 → 4E2 02-05 16:37